=== PATIENT | male | born 1945 | race Caucasian/White ===

== ENCOUNTER 2016-10-30 11:38 | Inpatient (IN) | payer MEDICARE, OTHER ==
[~2016-10-30] VITALS: Ht 177.8 cm; Wt 73.3 kg
[2016-10-30] MEDS ORDERED: SODIUM CHLORIDE 0.9% 1,000 ML ONE (13:31)
[2016-10-30] MEDS ORDERED: ZIPRASIDONE 20 MG INJ IM ONE (17:01)
[2016-10-30] MEDS ORDERED: SODIUM CHLORIDE 0.9% 1,000 ML IV SCH ×2 (19:35→20:30)
[2016-10-30] MEDS ORDERED: GLUCAGON 1 MG VIAL IM PRN (19:35)
[2016-10-30] MEDS ORDERED: DEXTROSE 50% SYRINGE 50 ML IV PRN (19:35)
[2016-10-30 19:49] VITALS: BP_SYST 160; BP_SYST 180; RESP 20; TEMP 99.4
[2016-10-30 19:50] VITALS: BMI 23.2; BMI 23.7
[2016-10-30] MEDS ORDERED: GADAVIST 7.5 ML SYR (HMH) IV ONE (20:33)
[2016-10-30] MEDS ORDERED: CEFTRIAXONE 2 GM in SODIUM CHLORIDE 0.9% 50 ML IV SCH (21:40)
[2016-10-30 23:23] VITALS: BP_SYST 140; RESP 18; TEMP 99
[2016-10-31] VITALS (32 sets, daily range): BP systolic 75–149; RESP 16–44; TEMP 97.1–99.1; BMI 23.2
[2016-10-31] MEDS ORDERED: ENOXAPARIN 40 MG/0.4 ML SYR SUBQ SCH (09:00)
[2016-10-31] MEDS ORDERED: PROMETHAZINE 25 MG/ML VIAL IV PRN (14:55)
[2016-10-31] MEDS ORDERED: MORPHINE 5 MG/1 ML VIAL IV PRN (14:55)
[2016-10-31] MEDS ORDERED: MORPHINE 4 MG/ML SYR ONE (15:19)
[2016-10-31] MEDS ORDERED: PROPOFOL 100 ML 100 ML IV ONE (17:34)
[2016-10-31] MEDS ORDERED: KETAMINE 500 MG/10 ML ONE (17:38)
[2016-10-31] MEDS ORDERED: SUCCINYLCHOLINE 20 MG/ML VL ONE (17:38)
[2016-10-31] MEDS: PROPOFOL 100 ML 100 ML IV PRN (18:39)
[2016-10-31] MEDS ORDERED: FAMOTIDINE 20 MG/50 ML 50 ML IV SCH (20:00)
[2016-10-31] MEDS: FAMOTIDINE 20 MG INJ IV SCH (21:07)
[2016-11-01] VITALS (71 sets, daily range): BP systolic 78–160; RESP 9–35; TEMP 98–100.1
[2016-11-01] MEDS: NOREPINEPHRINE 16 MG in DEXTROSE 5% 234 ML IV SCH (02:03)
[2016-11-01] MEDS: SODIUM CHLORIDE 0.9% FLUSH BAG 500 ML IV SCH (07:32)
[2016-11-01] MEDS ORDERED: SODIUM CHLORIDE 0.9% 1,000 ML IV SCH (07:50)
[2016-11-01] MEDS: MAGNESIUM SULF 1 GM/100 ML 100 ML IV SCH ×2 (08:33→10:54)
[2016-11-01] MEDS: FAMOTIDINE 20 MG INJ IV SCH ×2 (08:34→20:03)
[2016-11-01] MEDS ORDERED: PHARMACY TO DOSE CEFEPIME IV SCH (11:10)
[2016-11-01] MEDS ORDERED: PHARMACY TO DOSE XX SCH ×2 (11:10→11:15)
[2016-11-01] MEDS ORDERED: PHARMACY TO DOSE VANCOMYCIN IV SCH (11:10)
[2016-11-01] MEDS ORDERED: VANCOMYCIN 1,500 MG in SODIUM CHLORIDE 0.9% 250 ML IV STA (11:25)
[2016-11-01] MEDS ORDERED: CEFEPIME 2000 MG/100 ML D5W 100 ML IV SCH (16:00)
[2016-11-01] MEDS: PROPOFOL 100 ML 100 ML IV PRN (16:36)
[2016-11-01] MEDS: ACYCLOVIR 750 MG in SODIUM CHLORIDE 0.9% 250 ML IV SCH (16:36)
[2016-11-01] MEDS ORDERED: MISSING DOSE XX ONE (16:50)
[2016-11-01] MEDS: CEFEPIME 2000 MG/100 ML D5W 100 ML IV SCH (17:59)
[2016-11-01] MEDS: ENOXAPARIN 40 MG/0.4 ML SYR SUBQ SCH (20:04)
[2016-11-02] VITALS (31 sets, daily range): BP systolic 110–179; RESP 17–38; TEMP 97.9–100
[2016-11-02] MEDS ORDERED: VANCOMYCIN 1,000 MG in SODIUM CHLORIDE 0.9% 250 ML IV SCH
[2016-11-02] MEDS: CEFEPIME 2000 MG/100 ML D5W 100 ML IV SCH ×2 (00:11→08:14)
[2016-11-02] MEDS: ACYCLOVIR 750 MG in SODIUM CHLORIDE 0.9% 250 ML IV SCH ×2 (00:11→08:14)
[2016-11-02] MEDS: SODIUM CHLORIDE 0.9% FLUSH BAG 500 ML IV SCH (06:00)
[2016-11-02] MEDS: PROPOFOL 100 ML 100 ML IV PRN (06:42)
[2016-11-02] MEDS ORDERED: POTASSIUM PHOSPHATE 45 MMOL in SODIUM CHLORIDE 0.9% 500 ML IV ONE (07:15)
[2016-11-02] MEDS: FAMOTIDINE 20 MG INJ IV SCH ×2 (08:14→20:48)
[2016-11-02] MEDS ORDERED: PHARMACY TO DOSE MERREM XX SCH (09:25)
[2016-11-02] MEDS ORDERED: PHARMACY TO DOSE VANCOMYCIN IV SCH (11:15)
[2016-11-02] MEDS: VANCOMYCIN 1,000 MG in SODIUM CHLORIDE 0.9% 250 ML IV SCH (13:04)
[2016-11-02] MEDS ORDERED: SOD BICARB 8.4% VIAL 50 ML IV ONE (17:16)
[2016-11-02] MEDS ORDERED: LIDOCAINE 2% 20 ML INJ ONE (17:16)
[2016-11-02] MEDS: ENOXAPARIN 40 MG/0.4 ML SYR SUBQ SCH (20:48)
[2016-11-03] VITALS (24 sets, daily range): BP systolic 121–178; RESP 20–55; TEMP 97.1–98.7; Ht 177.8 cm; Wt 73.3 kg
[2016-11-03] MEDS: VANCOMYCIN 1,000 MG in SODIUM CHLORIDE 0.9% 250 ML IV SCH ×2 (00:22→12:56)
[2016-11-03] MEDS: SODIUM CHLORIDE 0.9% FLUSH BAG 500 ML IV SCH (06:00)
[2016-11-03] MEDS ORDERED: POTASSIUM PHOSPHATE 45 MMOL in SODIUM CHLORIDE 0.9% 500 ML IV ONE (07:05)
[2016-11-03] MEDS: FAMOTIDINE 20 MG INJ IV SCH ×2 (07:36→21:11)
[2016-11-03] MEDS: MAGNESIUM SULF 1 GM/100 ML 100 ML IV SCH ×3 (07:37→10:24)
[2016-11-03] MEDS: HALOPERIDOL 5 MG/ML VIAL IM PRN (09:18)
[2016-11-03] MEDS ORDERED: DEXTROSE 5% 1,000 ML IV SCH (11:25)
[2016-11-03] MEDS: ENOXAPARIN 40 MG/0.4 ML SYR SUBQ SCH (21:12)
[2016-11-04] VITALS (24 sets, daily range): BP systolic 108–176; RESP 18–37; TEMP 98–99
[2016-11-04] MEDS: VANCOMYCIN 1,000 MG in SODIUM CHLORIDE 0.9% 250 ML IV SCH ×3 (00:46→23:40)
[2016-11-04] MEDS: HALOPERIDOL 5 MG/ML VIAL IM PRN (04:30)
[2016-11-04] MEDS: SODIUM CHLORIDE 0.9% FLUSH BAG 500 ML IV SCH (05:18)
[2016-11-04] MEDS ORDERED: POTASSIUM CHLORIDE PREMIX 50 ML IV ONE (08:15)
[2016-11-04] MEDS: FAMOTIDINE 20 MG INJ IV SCH ×2 (09:08→21:04)
[2016-11-04] MEDS: ENOXAPARIN 40 MG/0.4 ML SYR SUBQ SCH (21:05)
[2016-11-05] VITALS (25 sets, daily range): BP systolic 106–165; RESP 23–40; TEMP 97.5–99.3
[2016-11-05] MEDS: SODIUM CHLORIDE 0.9% FLUSH BAG 500 ML IV SCH (05:22)
[2016-11-05] MEDS: FAMOTIDINE 20 MG INJ IV SCH ×2 (08:25→20:05)
[2016-11-05] MEDS ORDERED: DEXTROSE 5% 1,000 ML IV SCH (11:15)
[2016-11-05] MEDS: VANCOMYCIN 1,000 MG in SODIUM CHLORIDE 0.9% 250 ML IV SCH (11:24)
[2016-11-05] MEDS ORDERED: SODIUM PHOSPHATE 30 MM in SODIUM CHLORIDE 0.9% 250 ML IV ONE (12:15)
[2016-11-05] MEDS: VALPROATE 250 MG in SODIUM CHLORIDE 0.9% 50 ML IV SCH ×2 (13:27→18:00)
[2016-11-05] MEDS: ENOXAPARIN 40 MG/0.4 ML SYR SUBQ SCH (20:06)
[2016-11-06] VITALS (26 sets, daily range): BP systolic 129–170; RESP 19–38; TEMP 98.5–99.6
[2016-11-06] MEDS: VALPROATE 250 MG in SODIUM CHLORIDE 0.9% 50 ML IV SCH ×4 (00:26→18:43)
[2016-11-06] MEDS: VANCOMYCIN 1,000 MG in SODIUM CHLORIDE 0.9% 250 ML IV SCH ×2 (01:02→12:01)
[2016-11-06] MEDS: SODIUM CHLORIDE 0.9% FLUSH BAG 500 ML IV SCH (06:00)
[2016-11-06] MEDS ORDERED: MAGNESIUM SULF 1 GM/100 ML 100 ML IV ONE (07:30)
[2016-11-06] MEDS ORDERED: DEXTROSE 5% 1,000 ML IV SCH (07:30)
[2016-11-06] MEDS ORDERED: CALCIUM GLUCONATE 1,000 MG in SODIUM CHLORIDE 0.9% 100 ML IV ONE (07:30)
[2016-11-06] MEDS: FAMOTIDINE 20 MG INJ IV SCH ×2 (08:13→21:03)
[2016-11-06] MEDS: ENOXAPARIN 40 MG/0.4 ML SYR SUBQ SCH (21:12)
[2016-11-07] VITALS (74 sets, daily range): BP systolic 68–127; RESP 6–45; TEMP 97.1–101.6
[2016-11-07] MEDS ORDERED: NEB-NACL 3% 4 ML NEBU INH ONE ×2 (01:00→10:09)
[2016-11-07] MEDS ORDERED: NEB-NACL 3% 4 ML NEBU INH STA (01:04)
[2016-11-07] MEDS: VANCOMYCIN 1,000 MG in SODIUM CHLORIDE 0.9% 250 ML IV SCH ×3 (01:39→12:45)
[2016-11-07] MEDS: VALPROATE 250 MG in SODIUM CHLORIDE 0.9% 50 ML IV SCH ×5 (01:39→23:51)
[2016-11-07] MEDS ORDERED: ETOMIDATE 2 MG/ML VIAL IV ONE (05:51)
[2016-11-07] MEDS ORDERED: ROCURONIUM 50 MG VIAL IV ONE (05:51)
[2016-11-07] MEDS: SODIUM CHLORIDE 0.9% FLUSH BAG 500 ML IV SCH (06:00)
[2016-11-07] MEDS ORDERED: MISSING DOSE XX ONE (06:50)
[2016-11-07] MEDS ORDERED: CALCIUM GLUCONATE 1,000 MG in SODIUM CHLORIDE 0.9% 100 ML IV ONE (07:45)
[2016-11-07] MEDS ORDERED: MAGNESIUM SULF 1 GM/100 ML 100 ML IV ONE (07:45)
[2016-11-07] MEDS: FAMOTIDINE 20 MG INJ IV SCH ×2 (08:18→20:54)
[2016-11-07] MEDS: NEB-ALBUTEROL 2.5 MG/3 ML INH SCH ×4 (10:23→23:18)
[2016-11-07] MEDS: NEB-NACL 3% 4 ML NEBU INH SCH ×3 (10:23→23:18)
[2016-11-07] MEDS ORDERED: NEB-ALBUTEROL 2.5 MG/3 ML INH SCH (11:00)
[2016-11-07] MEDS ORDERED: SODIUM CHLORIDE 0.9% 1,000 ML IV ONE (19:35)
[2016-11-07] MEDS: FENTANYL DRIP 50 ML IV PRN (19:42)
[2016-11-07] MEDS ORDERED: NOREPINEPHRINE 1 MG/ML 4 ML VIAL IV ONE (20:02)
[2016-11-07] MEDS: NOREPINEPHRINE 16 MG in DEXTROSE 5% 234 ML IV SCH (20:10)
[2016-11-07] MEDS: ENOXAPARIN 40 MG/0.4 ML SYR SUBQ SCH (20:55)
[2016-11-07] MEDS: ACETAMINOPHEN 650 MG/20.3 ML UDC PO PRN (21:59)
[2016-11-07] MEDS: METRONIDAZOLE 500MG/100ML 100 ML IV SCH (23:13)
[2016-11-08] VITALS (82 sets, daily range): BP systolic 71–158; RESP 9–37; TEMP 99.2–100.8
[2016-11-08] MEDS: VANCOMYCIN 1,000 MG in SODIUM CHLORIDE 0.9% 250 ML IV SCH ×2 (01:00→12:33)
[2016-11-08] MEDS: NEB-ALBUTEROL 2.5 MG/3 ML INH SCH ×6 (02:19→22:26)
[2016-11-08] MEDS: SODIUM CHLORIDE 0.9% FLUSH BAG 500 ML IV SCH (06:11)
[2016-11-08] MEDS: VALPROATE 250 MG in SODIUM CHLORIDE 0.9% 50 ML IV SCH ×4 (06:11→23:47)
[2016-11-08] MEDS: FENTANYL DRIP 50 ML IV PRN ×3 (06:12→19:44)
[2016-11-08] MEDS: NEB-NACL 3% 4 ML NEBU INH SCH ×4 (07:12→22:26)
[2016-11-08] MEDS: FAMOTIDINE 20 MG INJ IV SCH ×2 (08:18→20:09)
[2016-11-08] MEDS: METRONIDAZOLE 500MG/100ML 100 ML IV SCH ×2 (08:22→16:36)
[2016-11-08] MEDS: ENOXAPARIN 40 MG/0.4 ML SYR SUBQ SCH (20:10)
[2016-11-09] VITALS (40 sets, daily range): BP systolic 86–121; RESP 7–32; TEMP 98.9–101.2
[2016-11-09] MEDS: FENTANYL DRIP 50 ML IV PRN ×5 (00:57→22:23)
[2016-11-09] MEDS: VANCOMYCIN 1,000 MG in SODIUM CHLORIDE 0.9% 250 ML IV SCH (00:58)
[2016-11-09] MEDS: ACETAMINOPHEN 650 MG/20.3 ML UDC PO PRN (01:17)
[2016-11-09] MEDS: SODIUM CHLORIDE 0.9% FLUSH BAG 500 ML IV SCH ×2 (06:25→15:32)
[2016-11-09] MEDS: VALPROATE 250 MG in SODIUM CHLORIDE 0.9% 50 ML IV SCH ×3 (06:25→17:15)
[2016-11-09] MEDS: NEB-NACL 3% 4 ML NEBU INH SCH ×4 (06:49→23:43)
[2016-11-09] MEDS: NEB-ALBUTEROL 2.5 MG/3 ML INH SCH ×5 (06:50→23:44)
[2016-11-09] MEDS: PROPOFOL 100 ML 100 ML IV PRN ×3 (08:52→17:15)
[2016-11-09] MEDS: FAMOTIDINE 20 MG INJ IV SCH ×2 (09:03→20:09)
[2016-11-09] MEDS ORDERED: POTASSIUM PHOSPHATE 30 MMOL in SODIUM CHLORIDE 0.9% 250 ML IV ONE (09:30)
[2016-11-09] MEDS ORDERED: CALCIUM GLUCONATE 1,000 MG in SODIUM CHLORIDE 0.9% 100 ML IV ONE (10:45)
[2016-11-09] MEDS ORDERED: MISSING DOSE XX ONE (13:30)
[2016-11-10] VITALS (34 sets, daily range): BP systolic 74–160; RESP 8–31; TEMP 98.5–100.4
[2016-11-10] MEDS: VALPROATE 250 MG in SODIUM CHLORIDE 0.9% 50 ML IV SCH ×2 (00:35→06:36)
[2016-11-10] MEDS: NEB-ALBUTEROL 2.5 MG/3 ML INH SCH ×6 (02:06→21:22)
[2016-11-10] MEDS: FENTANYL DRIP 50 ML IV PRN ×2 (02:35→07:20)
[2016-11-10] MEDS: SODIUM CHLORIDE 0.9% FLUSH BAG 500 ML IV SCH (04:24)
[2016-11-10] MEDS: PROPOFOL 100 ML 100 ML IV PRN (04:27)
[2016-11-10] MEDS: NEB-NACL 3% 4 ML NEBU INH SCH ×4 (06:26→23:26)
[2016-11-10] MEDS: FAMOTIDINE 20 MG INJ IV SCH ×2 (08:34→20:24)
[2016-11-10] MEDS: VANCOMYCIN 1,000 MG in SODIUM CHLORIDE 0.9% 250 ML IV SCH (16:11)
[2016-11-10] MEDS: MICAFUNGIN 100 MG in SODIUM CHLORIDE 0.9% 100 ML IV SCH (16:58)
[2016-11-10] MEDS ORDERED: NEB-ALBUTEROL 2.5 MG/3 ML INH PRN (22:15)
[2016-11-10] MEDS: DUONEB INH SCH (23:26)
[2016-11-11] VITALS (24 sets, daily range): BP systolic 117–162; RESP 22–41; TEMP 98.8–99.9
[2016-11-11] MEDS ORDERED: MISSING DOSE XX ONE (00:35)
[2016-11-11] MEDS: HALOPERIDOL 5 MG/ML VIAL IM PRN ×3 (00:43→22:31)
[2016-11-11] MEDS: VALPROIC ACID 250 MG/5 ML UDC PO SCH ×2 (00:45→09:00)
[2016-11-11] MEDS: DUONEB INH SCH ×6 (02:44→22:55)
[2016-11-11] MEDS: SODIUM CHLORIDE 0.9% FLUSH BAG 500 ML IV SCH (05:58)
[2016-11-11] MEDS: NEB-NACL 3% 4 ML NEBU INH SCH ×4 (06:36→22:55)
[2016-11-11] MEDS ORDERED: SODIUM PHOSPHATE 30 MM in SODIUM CHLORIDE 0.9% 250 ML IV ONE (08:30)
[2016-11-11] MEDS: FAMOTIDINE 20 MG INJ IV SCH ×2 (08:35→20:29)
[2016-11-11] MEDS: MICAFUNGIN 100 MG in SODIUM CHLORIDE 0.9% 100 ML IV SCH (08:35)
[2016-11-11] MEDS ORDERED: ATROP PO PRN (09:35)
[2016-11-11] MEDS ORDERED: DIPHENOXYLATE PO PRN (09:35)
[2016-11-11] MEDS: MAGNESIUM SULF 1 GM/100 ML 100 ML IV SCH (10:35)
[2016-11-11] MEDS: VANCOMYCIN 1,000 MG in SODIUM CHLORIDE 0.9% 250 ML IV SCH (17:09)
[2016-11-12] VITALS (26 sets, daily range): BP systolic 117–156; RESP 31–41; TEMP 98.6–100.6
[2016-11-12] MEDS: DUONEB INH SCH ×6 (02:40→22:33)
[2016-11-12] MEDS: SODIUM CHLORIDE 0.9% FLUSH BAG 500 ML IV SCH (05:54)
[2016-11-12] MEDS: NEB-NACL 3% 4 ML NEBU INH SCH ×4 (06:06→22:33)
[2016-11-12] MEDS: MICAFUNGIN 100 MG in SODIUM CHLORIDE 0.9% 100 ML IV SCH (07:48)
[2016-11-12] MEDS: MAGNESIUM SULF 1 GM/100 ML 100 ML IV SCH (07:48)
[2016-11-12] MEDS: FAMOTIDINE 20 MG INJ IV SCH ×2 (07:49→20:52)
[2016-11-12] MEDS ORDERED: DEXTROSE 5% 1,000 ML IV SCH (10:05)
[2016-11-12] MEDS ORDERED: EPOETIN 40,000 UNIT VIAL SUBQ ONE (10:15)
[2016-11-12] MEDS: LEVEMIR INSULIN SUBQ SCH ×2 (12:27→20:52)
[2016-11-12] MEDS: VANCOMYCIN 1,000 MG in SODIUM CHLORIDE 0.9% 250 ML IV SCH (17:08)
[2016-11-13] VITALS (25 sets, daily range): BP systolic 92–144; RESP 29–46; TEMP 98.6–99.3
[2016-11-13] MEDS: DUONEB INH SCH ×6 (02:29→23:33)
[2016-11-13] MEDS: SODIUM CHLORIDE 0.9% FLUSH BAG 500 ML IV SCH (05:06)
[2016-11-13] MEDS: NEB-NACL 3% 4 ML NEBU INH SCH ×4 (05:58→23:34)
[2016-11-13] MEDS: FAMOTIDINE 20 MG INJ IV SCH (09:09)
[2016-11-13] MEDS: MAGNESIUM SULF 1 GM/100 ML 100 ML IV SCH (09:10)
[2016-11-13] MEDS: LEVEMIR INSULIN SUBQ SCH ×2 (10:09→20:53)
[2016-11-13] MEDS: VANCOMYCIN 1,000 MG in SODIUM CHLORIDE 0.9% 250 ML IV SCH (17:28)
[2016-11-14] VITALS (30 sets, daily range): BP systolic 90–138; RESP 26–42; TEMP 98.3–99.1
[2016-11-14] MEDS: DUONEB INH SCH ×6 (02:10→23:32)
[2016-11-14] MEDS: SODIUM CHLORIDE 0.9% FLUSH BAG 500 ML IV SCH (05:49)
[2016-11-14] MEDS: NEB-NACL 3% 4 ML NEBU INH SCH ×4 (06:03→23:32)
[2016-11-14] MEDS: MAGNESIUM SULF 1 GM/100 ML 100 ML IV SCH (08:11)
[2016-11-14] MEDS: FAMOTIDINE 20 MG INJ IV SCH (08:11)
[2016-11-14] MEDS: LEVEMIR INSULIN SUBQ SCH ×2 (09:00→20:37)
[2016-11-15] VITALS (19 sets, daily range): BP systolic 88–134; RESP 22–41; TEMP 97.6–98.3
[2016-11-15] MEDS: DUONEB INH SCH ×6 (02:37→23:26)
[2016-11-15] MEDS: SODIUM CHLORIDE 0.9% FLUSH BAG 500 ML IV SCH (05:52)
[2016-11-15] MEDS: NEB-NACL 3% 4 ML NEBU INH SCH ×4 (06:37→23:26)
[2016-11-15] MEDS: LEVEMIR INSULIN SUBQ SCH (08:15)
[2016-11-15] MEDS: FAMOTIDINE 20 MG INJ IV SCH (08:16)
[2016-11-15] MEDS ORDERED: LORAZEPAM 2 MG/ML VIAL IV PRN (10:35)
[2016-11-16 01:45] VITALS: BP_SYST 94; RESP 20; TEMP 97.6
[2016-11-16] MEDS: DUONEB INH SCH ×3 (02:29→10:41)
[2016-11-16] MEDS: NEB-NACL 3% 4 ML NEBU INH SCH ×2 (05:09→10:41)
[2016-11-16 07:31] VITALS: BP_SYST 92; RESP 20; TEMP 97.1
== END 2016-11-16 14:18 | disposition expired | DRG 97 ==
LOC: ENRESERVDT → ENRESERVTM → ER 11:38 → EMR 18:14 → PCU2 19:20 → ICU 10-31 15:33 → 4NT 11-15 16:25
PROVIDERS: ADMIT Internal Medicine; ATTEND Internal Medicine
PROC: 0BH17EZ Insertion of Endotracheal Airway into Trachea, Via Natural or Artificial Opening (ICD-10-PCS; 2016-10-31)
PROC: 5A1945Z Respiratory Ventilation, 24-96 Consecutive Hours (ICD-10-PCS; 2016-10-31)
PROC: 0B968ZX Drainage of Right Lower Lobe Bronchus, Via Natural or Artificial Opening Endoscopic, Diagnostic (ICD-10-PCS; 2016-10-31)
PROC: 009U3ZX Drainage of Spinal Canal, Percutaneous Approach, Diagnostic (ICD-10-PCS; principal; 2016-11-02)
PROC: 0BH17EZ Insertion of Endotracheal Airway into Trachea, Via Natural or Artificial Opening (ICD-10-PCS; 2016-11-06)
PROC: 5A1945Z Respiratory Ventilation, 24-96 Consecutive Hours (ICD-10-PCS; 2016-11-06)
PROC: 0B968ZX Drainage of Right Lower Lobe Bronchus, Via Natural or Artificial Opening Endoscopic, Diagnostic (ICD-10-PCS; 2016-11-10)
PROC: 0B9B8ZX Drainage of Left Lower Lobe Bronchus, Via Natural or Artificial Opening Endoscopic, Diagnostic (ICD-10-PCS; 2016-11-10)
DX: G03.0 Nonpyogenic meningitis (principal); G93.41 Metabolic encephalopathy; J96.01 Acute respiratory failure with hypoxia; J69.0 Pneumonitis due to inhalation of food and vomit; N17.9 Acute kidney failure, unspecified; C34.90 Malignant neoplasm of unspecified part of unspecified bronchus or lung; E87.3 Alkalosis; E11.22 Type 2 diabetes mellitus with diabetic chronic kidney disease; I12.9 Hypertensive chronic kidney disease with stage 1 through stage 4 chronic kidney disease, or unspecified chronic kidney disease; N18.3 Chronic kidney disease, stage 3 (moderate); E11.65 Type 2 diabetes mellitus with hyperglycemia; I25.10 Atherosclerotic heart disease of native coronary artery without angina pectoris; Z95.1 Presence of aortocoronary bypass graft; G40.909 Epilepsy, unspecified, not intractable, without status epilepticus; A49.02 Methicillin resistant Staphylococcus aureus infection, unspecified site; E83.42 Hypomagnesemia; E87.6 Hypokalemia; E83.39 Other disorders of phosphorus metabolism; D69.6 Thrombocytopenia, unspecified; R19.7 Diarrhea, unspecified; Z79.82 Long term (current) use of aspirin; Z79.02 Long term (current) use of antithrombotics/antiplatelets; Z86.73 Personal history of transient ischemic attack (TIA), and cerebral infarction without residual deficits; Z87.891 Personal history of nicotine dependence; Z92.21 Personal history of antineoplastic chemotherapy
CPT/HCPCS: 31622; 31720; 36415; 36430; 36600; 62270; 70450; 70553; 71010; 72100; 77003; 80048; 80051; 80053; 80069; 80202; 81003; 82330; 82438; 82803; 82945; 82947; 83540; 83605; 83735; 84100; 84146; 84157; 84466; 85014; 85018; 85025; 85610; 86592; 86618; 86694; 87040; 87071; 87077; 87102; 87116; 87186; 87205; 87206; 87327; 87493; 87498; 87529; 87798; 88108; 89051; 93005; 94002; 94003; 94640; 94799; 95819; 96360; 96372; 99291